=== PATIENT | male | born 1955 | race Caucasian/White ===

== ENCOUNTER 2016-12-18 18:57 | Emergency (ER) | payer BC ==
[~2016-12-18] VITALS: Ht 198.1 cm; Wt 179.6 kg
[~2016-12-18 18:57] MED LIST: IBUP-238 PO; LORT7.5T3 PO; PROZ20CA11 PO
[2016-12-18 18:59] VITALS: BP 162/103; PULSE 81; RESP 20; TEMP 98.2; O2SAT 95
[2016-12-18] MEDS ORDERED: SODIUM CHLOR 0.9% 1000 ML INJ 1,000 ML IV SCH (19:19)
[2016-12-18] MEDS ORDERED: MORPHINE SULFATE 4 MG/ML INJ IV ONE (19:30)
[2016-12-18] MEDS ORDERED: ONDANSETRON HCL 4 MG/2 ML VIAL IVP ONE (19:30)
[2016-12-18 19:47] LABS: BLOOD, URINE NEG (NEG); GLUCOSE,URINE NEG (NEG); KETONE, URINE NEG (NEG); NITRITE,URINE NEG (NEG); PH, URINE 5.5 (5.0-8.5)
[2016-12-18 19:49] LABS: AUTOMATED NEUTROPHIL # 3.5 TH/MM3 (1.8-7.7); BASOPHIL % 0.6 % (0.0-2.0); EOSINOPHIL # 0.1 TH/MM3 (0-0.4); EOSINOPHIL % 1.5 % (0.0-4.0); HEMATOCRIT 41.2 % (39.0-51.0); HEMO FLAGS DIFF FINAL; LYMPHOCYTE # 1.9 TH/MM3 (1.0-4.8); MEAN CELL VOLUME 83.8 FL (80.0-100.0); MEAN CORPUSCULAR HEMOGLOBIN 28.3 PG (27.0-34.0); MEAN CORPUSCULAR HGB CONC 33.8 % (32.0-36.0); MONO % 7.7 % (0.0-8.0); NEUT % 58.2 % (16.0-70.0); PLATELET COUNT 187 TH/MM3 (150-450); RED BLOOD COUNT 4.92 MIL/MM3 (4.50-5.90); RED CELL DISTRIBUTION WIDTH 12.3 % (11.6-17.2)
[2016-12-18] MEDS ORDERED: PROZ20CA11 PO (19:55)
[2016-12-18] MEDS ORDERED: ZOCO80TA PO (19:55)
[2016-12-18] MEDS ORDERED: METF1000 PO (19:55)
[2016-12-18 19:56] LABS: RBC, URINE 0-2 /hpf (0-3); SQUAMOUS EPITHELIAL CELL URINE 0-5 /hpf (0-5); URINE COLOR STRAW (YELLW/STRAW); WBC, URINE 0-2 /hpf (0-5)
[2016-12-18] MEDS ORDERED: ASPI81CH CHEW (19:56)
[2016-12-18 19:57] LABS: COMMENT (UR) CULT NOT INDICATED; CULTURE IF INDICATED CULT NOT INDICATED
--- NOTE | 2016-12-18 19:57 | PD ---
HPI . Left flank injury Chief Complaint: Complaint Time Seen by Provider: 19:16 Travel History International Travel<30 days: No Contact w/Intl Traveler<30days: No Traveled to known affect area: No History of Present Illness HPI Patient presents for evaluation of injuries sustained in a fall. He was working in the [employer] 2 days ago. He inadvertently fell through the roof of the attic and landed on a table and a bicycle. He reports an approximately 8 foot fall. He states that he was doing pretty well until today when he noticed hematuria. He denies any difficulty breathing. He complains of pain in the left flank area which has waxed and waned. It is exacerbated by certain movements. He states that it will "catch" and the pain will be a 6/10 when it catches. Otherwise, he is pretty comfortable. PFSH Past Medical History Hx Anticoagulant Therapy: Yes (BABY ASA) Cancer: No Cardiovascular Problems: No High Cholesterol: Yes Diabetes: Yes Patient Takes Glucophage: Yes Diminished Hearing: No Glaucoma: No Hepatitis: No Hiatal Hernia: No Hypertension: No Medical other: No Respiratory: Yes Thyroid Disease: No Tetanus Vaccination: Unknown Influenza Vaccination: Yes Past Surgical History Abdominal Surgery: Yes (APPENDECTOMY) Appendectomy: Yes Pacemaker: No Tonsillectomy: Yes Other Surgery: Yes Social History Alcohol Use: Yes (BEER DAILY 6 PK) Tobacco Use: No Substance Use: No Allergies-Medications (Allergen,Severity, Reaction): Coded Allergies: No Known Allergies (Verified , 12/18/16) Reported Meds & Prescriptions Reported Meds & Active Scripts Active Reported Aspirin 81 Mg Chew 81 Mg CHEW DAILY Prozac (Fluoxetine HCl) 20 Mg Cap 20 Mg PO DAILY Metformin (Metformin HCl) 1,000 Mg Tab 1,000 Mg PO BIDPC With meals Zocor (Simvastatin) 80 Mg Tab 80 Mg PO DAILY Review of Systems Except as stated in HPI: all other systems reviewed are Neg Cardiovascular: No: Chest Pain or Discomfort Respiratory: No: Shortness of Breath Genitourinary: Positive: Hematuria, Flank Pain Skin: Positive Change in Pigmentation (multiple bruises) Physical Exam Narrative GENERAL: The patient ambulates into the emergency department in no acute distress. SKIN: Warm and dry. Multiple bruises including the right shoulder, both upper arms and the left flank area HEAD: Atraumatic. Normocephalic. EYES: Pupils equal and round. Extraocular movements are intact. ENT: No nasal bleeding or discharge. Mucous membranes pink and moist. NECK: Trachea midline. No C-spine tenderness. Full range of motion. CARDIOVASCULAR: Regular rate and rhythm. Heart sounds are normal. RESPIRATORY: No accessory muscle use. Lungs are clear with full air movement throughout. GASTROINTESTINAL: Abdomen soft, non-tender, nondistended. MUSCULOSKELETAL: He is moving all 4 extremities equally with no evidence of long bone or joint injury. He does have bruising to the left flank with tenderness in that area. NEUROLOGICAL: Awake and alert. No obvious cranial nerve deficits. Motor grossly within normal limits. Normal speech. PSYCHIATRIC: Appropriate mood and affect; insight and judgment normal. Data Data Last Documented VS Vital Signs Date Time Temp Pulse Resp B/P Pulse Ox O2 Delivery O2 Flow Rate FiO2 12/18/16 19:59 82 18 158/94 97 Room Air 12/18/16 18:59 98.2 Orders Basic Metabolic Panel (Bmp) (12/18/16 19:19) Complete Blood Count With Diff (12/18/16 19:19) Urinalysis - C+S If Indicated (12/18/16 19:19) Ct Abd/Pel W Iv Contrast(Rout) (12/18/16 19:19) Morphine Inj (Morphine Inj) (12/18/16 19:30) Ondansetron Inj (Zofran Inj) (12/18/16 19:30) Sodium Chlor 0.9% 1000 Ml Inj (Ns 1000 M (12/18/16 19:19) Iohexol 350 Inj (Omnipaque 350 Inj) (12/18/16 20:58) Labs Laboratory Tests Test 12/18/16 12/18/16 19:25 19:35 Urine Color STRAW Urine Turbidity CLEAR Urine pH 5.5 Urine Specific Higden 1.004 Urine Protein NEG mg/dL Urine Glucose (UA) NEG mg/dL Urine Ketones NEG mg/dL Urine Occult Blood NEG Urine Nitrite NEG Urine Bilirubin NEG Urine Leukocyte Esterase NEG Urine RBC 0-2 /hpf Urine WBC 0-2 /hpf Urine Squamous Epithelial 0-5 /hpf Cells Urine Bacteria NONE /hpf Microscopic Urinalysis Comment CULT NOT INDICATED White Blood Count 6.0 TH/MM3 Red Blood Count 4.92 MIL/MM3 Hemoglobin 13.9 GM/DL Hematocrit 41.2 % Mean Corpuscular Volume 83.8 FL Mean Corpuscular Hemoglobin 28.3 PG Mean Corpuscular Hemoglobin 33.8 % Concent Red Cell Distribution Width 12.3 % Platelet Count 187 TH/MM3 Mean Platelet Volume 7.9 FL Neutrophils (%) (Auto) 58.2 % Lymphocytes (%) (Auto) 32.0 % Monocytes (%) (Auto) 7.7 % Eosinophils (%) (Auto) 1.5 % Basophils (%) (Auto) 0.6 % Neutrophils # (Auto) 3.5 TH/MM3 Lymphocytes # (Auto) 1.9 TH/MM3 Monocytes # (Auto) 0.5 TH/MM3 Eosinophils # (Auto) 0.1 TH/MM3 Basophils # (Auto) 0.0 TH/MM3 CBC Comment DIFF FINAL Differential Comment Sodium Level 141 MEQ/L Potassium Level 3.6 MEQ/L Chloride Level 104 MEQ/L Carbon Dioxide Level 23.7 MEQ/L Anion Gap 13 MEQ/L Blood Urea Nitrogen 9 MG/DL Creatinine 0.66 MG/DL Estimat Glomerular Filtration 122 ML/MIN Rate Random Glucose 102 MG/DL Calcium Level 8.9 MG/DL [facility] Medical Decision Making Medical Screen Exam Complete: Yes Emergency Medical Condition: Yes Differential Diagnosis Differential diagnosis includes blunt soft tissue trauma, kidney contusion, kidney laceration Narrative Course Patient presents for evaluation of injuries sustained in a fall 2 days ago. He fell through the roof of an attic and struck the left flank area. He now has hematuria. A CT of the abdomen and pelvis has been ordered as well as some baseline labs and urinalysis. I have ordered IV fluids. I have ordered IV morphine and Zofran but the patient is currently declining. CBC & BMP Diagram 12/18/16 19:35 UA has no blood. Last Impressions Abdomen/Pelvis CT 12/18/161918 Signed Impressions: Service Date/Time: Sunday, December 18, 2016 20:36 - CONCLUSION: 1. Fractures of the left L1-L4 transverse processes. 2. Right posterior lower rib fracture which is nondisplaced. 3. Bilateral renal cysts with no calculi or obstruction. Urinary bladder is unremarkable. Camilo Pagan MD Diagnosis Primary Impression: Fracture of transverse process of lumbar vertebra Qualified Code: S32.008A - Fracture of transverse process of lumbar vertebra, closed, initial encounter Additional Impression: Right rib fracture Qualified Code: S22.31XA - Closed fracture of one rib of right side, initial encounter Referrals: Simón Xiong MD 1 week Primary Care Physician 1 week Patient Instructions: General Instructions, Rib Fracture (DC), Thoracolumbar Fracture (DC) Med/Other Pt SpecificInfo: Prescription(s) given Scripts Oxycodone-Acetaminophen (Percocet)5-325 mg Tab1 Tab PO Q4H PRN (PAIN) #30 TAB Ref 0 Prov:Stephanie Yarbrough MD 12/18/16 Disposition: 01 DISCHARGE HOME Condition: Stable Stephanie Yarbrough MD Dec 18, 2016 19:57
[2016-12-18 19:58] LABS: POTASSIUM 3.6 MEQ/L (3.5-5.1)
[2016-12-18 19:59] VITALS: BP 158/94; PULSE 82; RESP 18; O2SAT 97
[2016-12-18 20:01] LABS: BICARBONATE 23.7 MEQ/L (21.0-32.0)
[2016-12-18] MEDS ORDERED: IOHEXOL 350 MG/ML 10 ML VIAL (for RAD DIAG) IV ONE (20:58)
--- NOTE | 2016-12-18 21:19 | RADRPT ---
EXAM DATE/TIME: 12/18/2016 20:36 [facility] COMPARISON: No previous studies available for comparison. INDICATIONS : Left lower back pain and gross hematuria post fall. IV CONTRAST: 96 cc Omnipaque 300 (iohexol) IV ORAL CONTRAST: No oral contrast ingested. RADIATION DOSE: 23.58 CTDIvol (mGy) MEDICAL HISTORY : Diabetes mellitus type 2. SURGICAL HISTORY : Appendectomy. ENCOUNTER: Initial ACUITY: 2 days PAIN SCALE: 6/10 LOCATION: Left lower quadrant TECHNIQUE: Volumetric scanning of the abdomen and pelvis was performed. Using automated exposure control and ad justment of the mA and/or kV according to patient size, radiation dose was kept as low as reasonably achievable to obtain optimal diagnostic quality images. DICOM format image data is available electro nically for review and comparison. FINDINGS: LOWER LUNGS: The visualized lower lungs are clear. LIVER: Homogeneous density without lesion. There is no dilation of the biliary tree. No calcified gallston es. SPLEEN: Normal size without lesion. PANCREAS: Within normal limits. KIDNEYS: Normal in size and shape. There is no solid mass, stone or hydronephrosis. Small parapelvic cysts ar e noted bilaterally left greater than right. A cortical cyst is noted extending off the upper pole of the right kidney. ADRENAL GLANDS: Within normal limits. VASCULAR: There is no aortic aneurysm. BOWEL/MESENTERY: The stomach, small bowel, and colon demonstrate no acute abnormality. There is no free intraperitone al air or fluid. ABDOMINAL WALL: Within normal limits. RETROPERITONEUM: There is no lymphadenopathy. BLADDER: No wall thickening or mass. REPRODUCTIVE: Within normal limits. INGUINAL: There is no lymphadenopathy or hernia. MUSCULOSKELETAL: There are fractures of the left L1-L4 transverse processes which are minimally distracted. There is a right posterior lower rib fracture which is nondisplaced. CONCLUSION: 1. Fractures of the left L1-L4 transverse processes. 2. Right posterior lower rib fracture which is nondisplaced. 3. Bilateral renal cysts with no calculi or obstruction. Urinary bladder is unremarkable. Camilo Pagan MD on December 18, 2016 at 21:12 Board Certified Radiologist. This report was verified electronically.
[2016-12-18] MEDS ORDERED: PERC5TAB12 PO (21:35)
[2016-12-18 22:01] VITALS: BP 156/96; PULSE 80; RESP 18; O2SAT 97
== END 2016-12-18 22:03 | disposition home or self-care (01) ==
LOC: PHED 18:57
DX: S32.008A Other fracture of unspecified lumbar vertebra, initial encounter for closed fracture (principal); S22.31XA Fracture of one rib, right side, initial encounter for closed fracture; W17.89XA Other fall from one level to another, initial encounter; E78.00 Pure hypercholesterolemia, unspecified; E11.9 Type 2 diabetes mellitus without complications; Z79.82 Long term (current) use of aspirin
CPT/HCPCS: 74177; 80048; 81001; 85025; 96360; 99285; J7030; Q9967